=== PATIENT | female | born 1950 | race Caucasian/White ===

== ENCOUNTER 2016-05-06 08:19 | Outpatient (CLI) | payer OTHER ==
--- NOTE | 2016-05-06 08:57 | DIAGNOSTIC IMAGING REPORT ---
PROCEDURE: US SOFT TISSUE ANYWHERE INDICATION: Left buttock inflammation, initial encounter TECHNIQUE: Mcdermott scale and color Doppler of the buttocks. COMPARISON: None. FINDINGS: There is heterogeneity of the left buttock subcutaneous soft tissues with mild hyperemia suggestive of cellulitis. There is no evidence of a fluid collection or abscess. IMPRESSION: 1. Left buttock cellulitis. 2. Results discussed with Dr. Cortez
[2016-05-06] MEDS ORDERED: FOSAMAX70 MG PO (17:37)
[2016-05-06] MEDS ORDERED: BACTRIM DS1 TAB PO (17:37)
[2016-05-06] MEDS ORDERED: LEVOTHYROXINE100 MCG PO (17:37)
[2016-05-06] MEDS ORDERED: FLUOXETINE HCL20 MG PO (17:38)
== END 2016-05-06 23:00 ==
LOC: US SRH 08:19
DX: L03.317 Cellulitis of buttock (principal)